=== PATIENT | female | born 1970 | race Caucasian/White ===

== ENCOUNTER 2021-11-26 18:21 | Emergency (ER) | payer OTHER, BC ==
[~2021-11-26] VITALS: Ht 157.5 cm; Wt 47.2 kg
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
[2021-11-26 19:10] VITALS: BP_SYST 156
[2021-11-26] MEDS ORDERED: IBUP-1969 PO ×2 (20:05→20:07)
[2021-11-26] MEDS ORDERED: CYCL10TA24 PO ×2 (20:05→20:07)
[2021-11-26] MEDS ORDERED: ACET-2634 PO ×2 (20:05→20:07)
--- NOTE | 2021-11-26 20:05 | NUR ---
MD speaking with patient at this time
--- NOTE | 2021-11-26 20:19 | NUR ---
Patient given written and verbal discharge instructions and verbalizes understanding. ER MD discussed with patient the results and treatment provided. Patient in stable condition. ID arm band removed. IV catheter removed intact and dressing applied, no active bleeding. Rx of flexeril, ibuprofen, acetaminophen given. Patient educated on pain management and to follow up with PMD. Pain Scale 5/10. Opportunity for questions provided and answered. Medication side effect fact sheet provided.
[2021-11-26 20:20] VITALS: BP_SYST 125
== END 2021-11-26 20:20 | disposition home or self-care (01) ==
LOC: SED 18:21
DX: S40.022A Contusion of left upper arm, initial encounter (principal); M79.18 Myalgia, other site; M54.50 Low back pain, unspecified; M54.6 Pain in thoracic spine; V89.2XXA Person injured in unspecified motor-vehicle accident, traffic, initial encounter; Y93.89 Activity, other specified; Y92.89 Other specified places as the place of occurrence of the external cause; Y99.8 Other external cause status
CPT/HCPCS: 99283